=== PATIENT | female | born 1955 | race Caucasian/White ===

== ENCOUNTER → 2018-01-24 | Outpatient (CLI) | payer OTHER ==
[~2018-01-24] MED LIST: ALBU18HF INH; ATOR10TA9 PO; BUTA-177 PO; CARV-39 PO; CYCL-259 PO; FLUO20TA25 PO; FLUT1DIS3 INH; HYDR-3237 PO; HYDR25TA6 PO; NIFE90TA9 PO; POTA10CA61 PO; PROM25TA10 PO; TELM80TA PO; ZOLP10TA PO; [UNRECOGNIZED DRUG - REMARK]
[2018-01-24 10:52] LABS: BASOPHILS # (AUTO) 0.05 x10^3/uL (0-0.1); BASOPHILS % (AUTO) 1 % (0-1); EOSINOPHILS # (AUTO) 0.59 x10^3/uL (0-0.4); EOSINOPHILS % (AUTO) 11 % (1-7); LYMPHOCYTES # (AUTO) 1.85 x10^3/uL (1-3.4); LYMPHOCYTES % (AUTO) 35 % (22-44); MD NO; MEAN CORPUSCULAR HGB CONC 33.4 g/dL (32.4-35.8); MEAN CORPUSCULAR VOLUME 92.7 fL (80-100); MEAN PLATELET VOLUME 7.7 fL (7.4-10.4); MONOCYTES # (AUTO) 0.45 x10^3/uL (0.2-0.8); MONOCYTES % (AUTO) 9 % (2-9); NEUTROPHILS # (AUTO) 2.35 x10^3/uL (1.8-6.8); NEUTROPHILS % (AUTO) 45 % (42-75); PLATELET COUNT 235 x10^3/uL (130-400); RED BLOOD COUNT 4.53 x10^6/uL (3.82-5.3); RED CELL DISTRIBUTION WIDTH 14.3 % (9.6-15.2)
[2018-01-24 11:01] LABS: INTERNATIONAL NORMALIZED RATIO 0.98 (0.93-1.1); PROTHROMBIN TIME 10.1 Seconds (9.6-11.5)
[2018-01-24 11:04] LABS: ALBUMIN 3.7 g/dL (3.4-5.0); ANION GAP 7 mmol/L (5-15); CALCIUM 9.2 mg/dL (8.5-10.1); CHLORIDE 106 mmol/L (98-107); CREATININE 0.99 mg/dL (0.55-1.02)
[2018-01-24 11:06] LABS: ALANINE AMINOTRANSFERASE 42 U/L (12-78); ALKALINE PHOSPHATASE 80 U/L (45-117); BILIRUBIN,TOTAL 0.5 mg/dL (0.2-1.0); TOTAL PROTEIN 7.3 g/dL (6.4-8.2)
== END ==
LOC: STAR 10:01
PROVIDERS: ATTEND Neurological Surgery
DX: I10 Essential (primary) hypertension (principal); M48.02 Spinal stenosis, cervical region
CPT/HCPCS: 36415; 71046; 80053; 85025; 85610; 85730; 93005

== ENCOUNTER 2018-02-07 10:43 | Inpatient (IN) | payer OTHER ==
[~2018-02-07] VITALS: Ht 171.4 cm; Wt 72.5 kg
[~2018-02-07 10:43] MED LIST changes: +CEFAZOLIN 1,000 MG ONE; +DEXAMETHASONE 4 MG/ML, 1ML ONE; +FENTANYL PF 250 MCG/5ML ONE; +GLYCOPYRROLATE 0.2MG/1ML, 5ML ONE; +LIDOCAINE 2%, 10ML ONE; +LIDOCAINE 4%, 4 ML SYR/CANN TP ONE; +MIDAZOLAM 1 MG/ML, 2ML ONE; +NEOSTIGMINE 1 MG/ML, 10ML ONE; +ONDANSETRON 2MG/ML, 2ML ONE; +PROPOFOL 10 MG/ML, 20ML ONE; +ROCURONIUM 10MG/ML,5ML ONE; +SUCCINYLCHOLINE 20 MG/ML, 10ML ONE
[2018-02-07] MEDS ORDERED: LACTATED RINGERS 1,000 ML IV SCH (11:05)
[2018-02-07] MEDS ORDERED: LIDOCAINE-MPF 1%, 2ML ONE (11:07)
[2018-02-07] MEDS ORDERED: LIDOCAINE-MPF 1%, 2ML INFIL ONE (11:30)
[2018-02-07] MEDS ORDERED: THROMBIN 5,000 UNIT VIAL TP ONE (12:46)
[2018-02-07] MEDS ORDERED: BUPIVACAINE/PF 0.5% ONE (12:46)
[2018-02-07] MEDS ORDERED: EPINEPHRINE 1 MG/ML, 1ML ONE (12:47)
[2018-02-07] MEDS ORDERED: BACITRACIN 50,000 UNIT ONE (12:47)
[2018-02-07] MEDS ORDERED: OxyconTIN ER 10 MG TAB.ER PO ONE (13:00)
[2018-02-07] MEDS ORDERED: ACETAMINOPHEN 500 MG TABLET PO ONE (13:00)
[2018-02-07] MEDS ORDERED: FAMOTIDINE 20 MG TABLET PO ONE (13:00)
[2018-02-07] MEDS ORDERED: GABAPENTIN 300 MG CAPSULE PO ONE (13:00)
[2018-02-07] MEDS ORDERED: PROMETHAZINE 25 MG/ML, 1ML IV PRN (13:00)
[2018-02-07] MEDS ORDERED: hydrALAzine 20 MG/ML, 1ML IV PRN (13:00)
[2018-02-07] MEDS ORDERED: ONDANSETRON 2MG/ML, 2ML IVPush PRN (13:00)
[2018-02-07] MEDS ORDERED: OXYcodone 5 MG/5 ML ORAL.SOL UDC PO PRN (13:00)
[2018-02-07] MEDS ORDERED: LABETALOL 5MG/ML, 20ML IV PRN (13:00)
[2018-02-07] MEDS ORDERED: OXYcodone 5 MG/5 ML ORAL.SOL UDC ONE (15:12)
[2018-02-07] MEDS ORDERED: FENTANYL PF 100 MCG/2ML ONE (15:12)
[2018-02-07] MEDS: FENTANYL PF 100 MCG/2ML IV PRN ×2 (15:15→15:20)
[2018-02-07] MEDS ORDERED: DIAZEPAM 5 MG TABLET ONE (15:22)
[2018-02-07] MEDS ORDERED: DIAZEPAM 5 MG TABLET PO ONE (15:30)
[2018-02-07] MEDS: morphine SULFATE 10 MG/ML, 1ML IV PRN ×6 (16:00→17:15)
[2018-02-07] MEDS ORDERED: MORPHINE SULFATE 4 MG/ML, 1ML ONE ×3 (16:08→17:13)
[2018-02-07] MEDS ORDERED: ALBUTEROL/IPRATROPIUM 2.5MG/0.5MG, 3 ML ONE (16:44)
[2018-02-07] MEDS ORDERED: ALBUTEROL/IPRATROPIUM 2.5MG/0.5MG, 3 ML NPPB PRN (17:00)
[2018-02-07] MEDS ORDERED: ALBUTEROL SULFATE 2.5 MG/3 ML NPPB PRN ×2 (17:00→18:30)
[2018-02-07 18:00] VITALS: BP 145/86
[2018-02-07] MEDS ORDERED: PROMETHAZINE 25 MG/ML, 1ML IM PRN (18:00)
[2018-02-07] MEDS ORDERED: HYDROmorphone 2 MG/ML, 1ML IM PRN ×2 (18:00→19:00)
[2018-02-07] MEDS ORDERED: DIPHENHYDRAMINE 50 MG/ML, 1ML IM PRN (18:00)
[2018-02-07] MEDS ORDERED: DIPHENHYDRAMINE 50 MG/ML, 1ML IVPush PRN (18:00)
[2018-02-07] MEDS ORDERED: BISACODYL 10 MG SUPP PR PRN (18:00)
[2018-02-07] MEDS ORDERED: DIPHENHYDRAMINE 50 MG CAPSULE PO PRN (18:00)
[2018-02-07] MEDS ORDERED: DIAZEPAM 5 MG/ML, 2ML IV PRN (18:00)
[2018-02-07] MEDS ORDERED: MAGNESIUM HYDROXIDE 8%, 30ML UDC PO PRN (18:00)
[2018-02-07] MEDS: ONDANSETRON 2MG/ML, 2ML IV PRN (18:00)
[2018-02-07] MEDS ORDERED: ONDANSETRON ODT 4 MG ONE (18:02)
[2018-02-07] MEDS ORDERED: CYCLOBENZAPRINE 10 MG TABLET PO PRN (18:30)
[2018-02-07] MEDS ORDERED: BUTALB/APAP/CAFFEINE 50MG/325MG/40MG PO PRN (18:30)
[2018-02-07 18:51] VITALS: BP 125/76
[2018-02-07] MEDS ORDERED: PROMETHAZINE 25MG TABLET PO PRN (19:00)
[2018-02-07] MEDS ORDERED: ZOLPIDEM 10MG TABLET PO PRN (19:00)
[2018-02-07] MEDS ORDERED: ATORVASTATIN 10 MG TABLET PO SCH (21:00)
[2018-02-07] MEDS: POTASSIUM CHLORIDE 10 MEQ TABLET.ER PO SCH (21:00)
[2018-02-07] MEDS: NS + 20MEQ KCL 1,000 ML IV SCH (21:32)
[2018-02-07] MEDS: CEFAZOLIN PMX 1GM/50ML 50 ML IVPB SCH (21:32)
[2018-02-08 00:08] VITALS: BP 135/81
[2018-02-08] MEDS ORDERED: ONDANSETRON ODT 4 MG ONE (02:41)
[2018-02-08] MEDS: ONDANSETRON 2MG/ML, 2ML IV PRN (02:47)
[2018-02-08] MEDS: DIAZEPAM 5 MG TABLET PO PRN ×3 (02:48→14:07)
[2018-02-08 04:20] VITALS: BP 147/81
[2018-02-08] MEDS: CEFAZOLIN PMX 1GM/50ML 50 ML IVPB SCH (05:31)
[2018-02-08 05:36] VITALS: BP 135/80
[2018-02-08] MEDS ORDERED: CARVEDILOL 25 MG TABLET PO SCH (06:00)
[2018-02-08] MEDS: OXYcodone/APAP 7.5/325MG TABLET PO PRN ×3 (07:43→12:21)
[2018-02-08 07:54] VITALS: BP 139/87
[2018-02-08] MEDS: POTASSIUM CHLORIDE 10 MEQ TABLET.ER PO SCH (08:06)
[2018-02-08] MEDS ORDERED: VALSARTAN 160 MG TABLET PO SCH (09:00)
[2018-02-08] MEDS ORDERED: SENNA/DOCUSATE TABLET PO SCH (09:00)
[2018-02-08] MEDS ORDERED: niFEDipine ER 90 MG TAB.ER.24 PO SCH (09:00)
[2018-02-08] MEDS ORDERED: ADVAIR 250/50 INH SCH (09:00)
[2018-02-08] MEDS ORDERED: HYDROCHLOROTHIAZIDE 12.5 MG CAPSULE PO SCH (09:00)
[2018-02-08] MEDS ORDERED: FLUOXETINE HCL 20 MG CAPSULE PO SCH (09:00)
[2018-02-08] MEDS: NS + 20MEQ KCL 1,000 ML IV SCH (10:00)
[2018-02-08] MEDS ORDERED: OXYC-307 PO (10:32)
[2018-02-08] MEDS ORDERED: DIAZ10TA PO (10:33)
[2018-02-08] MEDS ORDERED: DOCU-131 PO (10:33)
[2018-02-08 12:30] VITALS: BP 130/73
== END 2018-02-08 15:00 | disposition home or self-care (01) | DRG 517 ==
LOC: OUT 10:43 → 4NOR 17:46 → OUT 19:46
PROVIDERS: ADMIT Neurological Surgery; ATTEND Neurological Surgery
PROC: 01N10ZZ Release Cervical Nerve, Open Approach (ICD-10-PCS; principal; 2018-02-07 13:30)
DX: M48.02 Spinal stenosis, cervical region (principal); G47.00 Insomnia, unspecified; I10 Essential (primary) hypertension; M54.12 Radiculopathy, cervical region; J45.909 Unspecified asthma, uncomplicated; Z98.1 Arthrodesis status; Z90.710 Acquired absence of both cervix and uterus; Z88.0 Allergy status to penicillin; Z83.3 Family history of diabetes mellitus; Z82.49 Family history of ischemic heart disease and other diseases of the circulatory system
CPT/HCPCS: 72040; 94640; C1713; J0171; J0690; J1100; J2250; J2270; J2405; J2550; J2704; J2710; J3010; J3480; J3490; J7620; Q0169; J0330; J7120